=== PATIENT | female | born 1965 | race Caucasian/White ===

== ENCOUNTER 2017-08-11 06:22 | Emergency (ER) | payer OTHER ==
[~2017-08-11] VITALS: Ht 162.6 cm; Wt 77.2 kg
[~2017-08-11 06:22] MED LIST: CIPRO500 MG PO; FLAGYL500 MG PO; Flagyl PO; Levaquin PO; NO HOME MEDS; NOHOMEMEDS; PERCOCET 5/31 TABLET PO; Percocet 5/325,Endoc PO; VICODIN,LORT1 TABLET PO
[2017-08-11] MEDS ORDERED: MOTRIN600 MG PO (08:53)
[2017-08-11] MEDS ORDERED: LIDODERM 5% P1 PATCH TD (08:53)
[2017-08-11] MEDS ORDERED: FLEXERIL10 MG PO (08:53)
[2017-08-11] MEDS ORDERED: PREDNISONE20 MG PO (08:53)
[2017-08-11 09:17] VITALS: BP 145/89
== END 2017-08-11 09:18 | disposition home or self-care (01) ==
LOC: EME 06:22
DX: M54.41 Lumbago with sciatica, right side (principal); F17.200 Nicotine dependence, unspecified, uncomplicated
CPT/HCPCS: 72100; 99281; 99284; J1885; J7512

== ENCOUNTER 2018-01-10 14:22 | Emergency (ER) | payer OTHER ==
[~2018-01-10] VITALS: Ht 162.6 cm; Wt 78.5 kg
[~2018-01-10 14:22] MED LIST changes: +FLEXERIL10 MG PO; +LIDODERM 5% P1 PATCH TD; +MOTRIN600 MG PO; +PREDNISONE20 MG PO
[2018-01-10 15:13] LABS: HEMATOCRIT 39.1 % (36.0-46.0); HEMOGLOBIN 13.1 G/DL (11.9-15.5); MCH 28.5 PG (29.0-34.0); MCHC 33.5 G/DL (30.0-36.0); MCV 85.2 FL (83-99); PLATELET COUNT 225 K/uL (156-360); RBC DIS.WIDTH-CV 12.6 % (11.8-14.6); RBC DIS.WIDTH-SD 39.1 % (39-53); RED BLOOD COUNT 4.59 M/uL (3.80-5.20); WHITE BLOOD COUNT 10.3 K/uL (4.1-10.2)
[2018-01-10 15:24] LABS: CHLORIDE 103 mEq/L (99-109); POTASSIUM 4.2 mEq/L (3.7-5.4); SODIUM 137 mEq/L (136-147)
[2018-01-10 15:25] LABS: APPEARANCE CLEAR ((CLEAR)); BILIRUBIN NEGATIVE; BLOOD SMALL; COLOR YELLOW ((YELLOW)); GLUCOSE (STRIP) NEGATIVE; KETONES NEGATIVE; LEUKOCYTES NEGATIVE; NITRITE NEGATIVE; PROTEIN (STRIP) NEGATIVE; SPECIFIC GRAVITY 1.015 (1.000-1.030)
[2018-01-10 15:26] LABS: GLUCOSE 103 mg/dL (70-99)
[2018-01-10 15:28] LABS: BACTERIA RARE /HPF; EPITHELIAL CELLS RARE /HPF; MUCUS TRACE /LPF; RED BLOOD CELLS 0-5 /HPF (0-5); UCUL ADDED? NO; WHITE BLOOD CELLS 0-5 /HPF (0-5)
[2018-01-10 15:30] LABS: CREATININE 0.8 mg/dL (0.6-1.3); GFR ESTIMATE (CALCULATED) > 59 mL/min/
[2018-01-10 15:31] LABS: UREA NITROGEN (BUN) 12 mg/dL (9-23)
[2018-01-10 15:41] LABS: QUANTITATIVE HCG 4.9 MIU/ML
[2018-01-10] MEDS ORDERED: CIPRO500 MG PO (20:02)
[2018-01-10] MEDS ORDERED: FLAGYL500 MG PO (20:02)
[2018-01-10] MEDS ORDERED: BENTYL10 MG PO (20:02)
[2018-01-10] MEDS ORDERED: ZOFRAN ODT4 MG PO (20:02)
[2018-01-10 20:39] VITALS: BP 128/80
== END 2018-01-10 20:40 | disposition home or self-care (01) ==
LOC: EME 14:22
DX: K57.32 Diverticulitis of large intestine without perforation or abscess without bleeding (principal); F17.200 Nicotine dependence, unspecified, uncomplicated; Z87.442 Personal history of urinary calculi; Z87.19 Personal history of other diseases of the digestive system; Z90.49 Acquired absence of other specified parts of digestive tract; Z90.710 Acquired absence of both cervix and uterus; Z88.6 Allergy status to analgesic agent; Z88.5 Allergy status to narcotic agent
CPT/HCPCS: 74176; 80048; 81003; 84702; 85027; 99281; 99285; J1885; J2405; J3010; J7030